=== PATIENT | male | born 1995 | race Caucasian/White ===

== ENCOUNTER → 2016-09-10 | Outpatient (CLI) | payer BC ==
[~2016-09-10] MED LIST: CNC/54 PO
[2016-09-10 16:08] LABS: BASO % 0.4 %; BASO ABS # 0.02 K/uL (0-0.2); COMPLETE YES; EOS % 0.4 %; IG% 0.4 %; LYMPH % 33.2 %; LYMPH ABS # 1.73 K/uL (1.2-3.4); MEAN CELL VOLUME 84.8 fL (80-100); MEAN CORPUSCULAR HEMOGLOBIN 29.5 pg (25-34); MEAN CORPUSCULAR HGB CONC 34.8 g/dl (32-36); MONO % 9.2 %; NEUT % 56.4 %; PLATELET COUNT 217 K/uL (130-400); RED BLOOD COUNT 4.95 M/uL (4.7-6.1); WHITE BLOOD COUNT 5.21 K/uL (4.8-10.8)
[2016-09-10 16:18] LABS: INR 1.1 (0.9-1.1); PARTIAL THROMBOPLASTIN RATIO 1.1; PROTHROMBIN TIME (PATIENT) 11.4 SECONDS (9.0-12.0)
[2016-09-10 16:20] LABS: POTASSIUM 3.8 mmol/L (3.5-5.1)
== END | disposition home or self-care (01) ==
LOC: C.LAB 14:51
DX: Z01.818 Encounter for other preprocedural examination (principal)

== ENCOUNTER → 2016-09-15 | Day surgery (SDC) | payer BC ==
[2016-09-09 11:56] VITALS: Ht 172.7 cm; Wt 93.2 kg
[~2016-09-15] VITALS: Ht 172.7 cm; Wt 93.2 kg
[~2016-09-15] MED LIST changes: +ATROPINE SULFATE 0.1 MG/ML 5ML SYR IV PRN; +BACITRACIN/POLYMYXIN B OINT 15 GM TUBE EXT ONE; +DEXAMETHASONE SOD INJ 4 MG/ML VIAL ONE; +EpHEDrine SULFATE INJ 50 MG/ML AMP IV PRN; +FENTANYL CITRATE INJ 50 MCG/1 ML 2 ML VIAL IV PRN; +FENTANYL CITRATE INJ 50 MCG/1 ML 2 ML VIAL ONE; +LACTATED RINGER'S 1000ML 1,000 ML IV SCH; +LIDOCAINE 2% JELLY 5 ML TUBE EXT ONE; +LIDOCAINE HCL 2% 2 ML VIAL (20MG/ML) ONE; +MIDAZOLAM HCL 1 MG/ML 2ML VIAL ONE; +ONDANSETRON INJ 2 MG/ML 2 ML VIAL IV PRN; +ONDANSETRON INJ 2 MG/ML 2 ML VIAL ONE; +OXYCODONE HCL SOLN 5 MG/5 ML UDC PO PRN; +OXYMETAZOLINE HCL 0.05% NA SPR 15 ML BTL ONE; +PROPOFOL IV EMULSION 10 MG/ML 20 ML VIAL IV ONE; +ROCURONIUM BROMIDE 10 MG/ML 5 ML VIAL ONE; +SUCCINYLCHOLINE CHLORIDE 20 MG/ML 10 ML VIAL IV ONE
--- NOTE | 2016-09-15 07:43 | History & Physical Bridge - SC ---
H&P Re-Evaluation Bridge Note: I have examined the patient, reviewed the History & Physical and in the interval since the performance of the History & Physical I have noted the following changes of clinical significance: No changes noted
--- NOTE | 2016-09-15 07:51 | History and Physical: Surg Cnt ---
History & Physical Date Sep 15, 2016. Chief Complaint CHRONIC TONSILLITIS AND TONSILLAR HYPERTROPHY History of Present Illness The patient is a 20 year old male with complaints of CHRONIC TONSILLITIS AND TONSILLAR HYPERTROPHY. Past Medical/Surgical History Medical Problems: (1) ADHD (attention deficit hyperactivity disorder) (2) Dyspnea (3) Strep throat Additional History Hepatic Disease: No Endocrine Disorder: No Kidney Disease: No Hypertension: No Heart Disease: No Bleeding Tendencies: No Infectious Diseases: No Other: ASTHMA Allergies Coded Allergies: Amoxicillin (Verified Allergy, Intermediate, rash, 09/15/16) Nickel (Verified Allergy, Unknown, RASH, 09/15/16) Penicillins (Unverified Adverse Reaction, Mild, RASH, 09/15/16) Home Medications Scheduled Methylphenidate Hcl (Concerta), 54 MG PO QAM Physical Examination Skin: warm/dry, no rash Eyes: normal inspection, EOMI, sclerae normal ENT: + pertinent finding (3-4+ TONSILS) Head: normocephalic, atraumatic Neck: supple, no adenopathy, trachea midline Respiratory/Chest: lungs clear, normal breath sounds, no respiratory distress Cardiovascular: regular rate, rhythm, no edema, no murmur Neurologic/Psych: no motor/sensory deficits, alert, normal reflexes, oriented x 3 Diagnosis CHRONIC TONSILLITIS AND TONSILLAR HYPERTROPHY Plan of Treatment TONSILLECTOMY, POSSIBLE ADENOIDECTOMY
--- NOTE | 2016-09-15 08:40 | [facility] Operative Report ---
Operative Report Operative Date Sep 15, 2016. Pre-Operative Diagnosis Chronic Tonsillitis, Tonsillar Hypertrophy Post-Operative Diagnosis Same Procedure(s) Performed Tonsillectomy And Adenoidectomy Surgeon Dr Overton Lathe Operator Contact Lens Surgeon(s) None Estimated Blood Loss 10ML Findings 1. 4+ TONSILS 2. 2+ ADENOIDS Specimens A: Right Tonsil B: Left Tonsil I attest to the content of the Intraoperative Record and any orders documented therein. Any exceptions are noted below.
--- NOTE | 2016-09-15 08:42 | Discharge Instructions ---
Discharge Instructions Admission Reason for Admission: Chronic Tonsillitis,Tonsillar Hypertrophy Discharge Discharge Diagnosis / Problem: SAME Discharge Goals Goal(s): Improve function Activity Recommendations Activity Limitations: as noted below 1. LIGHT ACTIVITY FOR 2WEEKS 2. MAY STAY OFF FROM WORK FOR 2WEEKS IF NEEDED 3. NO DRIVING WHILE ON OXYCODONE . Current Hospital Diet Patient's current hospital diet: Full Liquid Diet Discharge Diet Recommended Diet: Full Liquid Diet Diet Texture: Mechanical Soft (ground) Procedures Procedures Performed: Tonsillectomy And Adenoidectomy Pending Studies Studies pending at discharge: no Medical Emergencies . Who to Call and When: Medical Emergencies: If at any time you feel your situation is an emergency, please call 911 immediately. . Non-Emergent Contact Non-Emergency issues call your: Surgeon . . "Provider Documentation" section prepared by Gallito Overton. VTE Core Measure Inpt VTE Proph given/why not?: SCD's
--- NOTE | 2016-09-15 09:14 | OPERATIVE REPORT ---
DATE OF OPERATION: 09/15/2016 PREOPERATIVE DIAGNOSES: 1. Chronic tonsillitis. 2. Tonsillar hypertrophy. PROCEDURE: Tonsillectomy and adenoidectomy. SURGEON: Dr. Overton. ANESTHESIA: General endotracheal. ESTIMATED BLOOD LOSS: 10 mL FINDINGS: 1. 2+ adenoid tissue. 2. 4+ tonsils. SPECIMENS: Right and left tonsil sent separately for perm pathological assessment. COMPLICATIONS: None. INDICATIONS FOR THE PROCEDURE: The patient is a 20-year-old male with the above-mentioned history who presents for the above-mentioned procedure on an outpatient elective basis. DESCRIPTION OF PROCEDURE: After informed consent had been obtained from the patient, the patient was wheeled to the operating room and placed on the operating table in supine position. Monitors were placed after induction of general endotracheal anesthesia. The table was turned 90 degrees and the patient's head and neck were gently extended. Antibiotic ointment was applied to the lips and a mouth gag was carefully inserted, opened, and stabilized on a roll of towels. The pelvis was inspected and was found to be normal. Of note, the patient's tonsils were 4+ in size and visualization of the adenoid tissue was not able to be achieved prior to tonsillectomy. An Allis clamp was used to grasp the right tonsil and the superior pole and Bovie electrocautery was used to remove the tonsil and the capsular plane with care to preserve the underlying mucosa and musculature of the anterior and posterior tonsillar pillars. The left tonsil was then removed in a similar fashion. Intraoperative findings were 4+ tonsils bilaterally. These were sent separately for permanent pathological assessment. Catheter was inserted into the right nasal cavity and this was used to elevate the soft palate and uvula. A laryngeal mirror was used to inspect the nasopharynx and intraoperative findings were 2+ adenoid tissue. This was removed using suction Bovie electrocautery while achieving hemostasis simultaneously. The mouth gag was then released for 1 minute. This was reopened and hemostasis was confirmed. An orogastric tube was placed and the stomach was suctioned free of air and stomach contents. 2% lidocaine jelly was placed in the bilateral tonsillar fossae for added anesthetic affect. This marked the end of the case. The patient tolerated the procedure well and there were no apparent complications. The patient was extubated and transferred to recovery room in stable condition. I attest to the content of the Intraoperative Record and any orders documented therein. Any exceptio ns are noted below.
[2016-09-15 09:37] VITALS: TEMP 36.5
--- NOTE | 2016-09-15 09:56 | Anesthesia Progress Nt - [facility] ---
Anesthesia Post Op Note Date & Time Sep 15, 2016 at 09:55 Vital Signs Pain Intensity: 4 Vital Signs Past 12 Hours Date Time Temp Pulse Resp B/P Pulse Ox O2 Delivery O2 Flow Rate FiO2 09/15/16 09:37 36.5 63 126/82 98 Room Air 09/15/16 09:31 37.4 57 12 09/15/16 09:31 57 12 97 09/15/16 09:28 107/66 09/15/16 09:26 61 14 93 09/15/16 09:26 58 15 94 09/15/16 09:23 105/67 09/15/16 09:18 106/67 09/15/16 09:16 58 13 09/15/16 09:16 58 13 98 09/15/16 09:13 101/65 09/15/16 09:11 59 9 09/15/16 09:11 60 9 100 09/15/16 09:09 119/79 09/15/16 09:03 127/81 09/15/16 09:01 85 19 99 09/15/16 09:01 94 19 99 09/15/16 08:58 131/91 09/15/16 08:56 81 17 100 09/15/16 08:56 82 17 09/15/16 08:54 131/96 09/15/16 08:52 36.6 90 12 145/92 100 Humidified Oxygen 6 Mask 09/15/16 07:18 36.3 67 18 118/79 98 Room Air Notes Mental Status: alert / awake / arousable, participated in evaluation Pt Amnestic to Procedure: Yes Nausea / Vomiting: adequately controlled Pain: adequately controlled Airway Patency, RR, SpO2: stable & adequate BP & HR: stable & adequate Hydration State: stable & adequate Anesthetic Complications: no major complications apparent
[2016-09-15 10:10] VITALS: BP 121/82; PULSE 58; O2SAT 96
== END | disposition home or self-care (01) ==
LOC: X.SURG 06:59
DX: J35.01 Chronic tonsillitis (principal); F90.9 Attention-deficit hyperactivity disorder, unspecified type; R06.00 Dyspnea, unspecified

== ENCOUNTER 2017-04-13 21:38 | Emergency (ER) | payer BC, OTHER ==
[~2017-04-13] VITALS: Ht 172.7 cm; Wt 90.4 kg
[~2017-04-13 21:38] MED LIST changes: -ATROPINE SULFATE 0.1 MG/ML 5ML SYR IV PRN; -BACITRACIN/POLYMYXIN B OINT 15 GM TUBE EXT ONE; -DEXAMETHASONE SOD INJ 4 MG/ML VIAL ONE; -EpHEDrine SULFATE INJ 50 MG/ML AMP IV PRN; -FENTANYL CITRATE INJ 50 MCG/1 ML 2 ML VIAL IV PRN; -FENTANYL CITRATE INJ 50 MCG/1 ML 2 ML VIAL ONE; -LACTATED RINGER'S 1000ML 1,000 ML IV SCH; -LIDOCAINE 2% JELLY 5 ML TUBE EXT ONE; -LIDOCAINE HCL 2% 2 ML VIAL (20MG/ML) ONE; -MIDAZOLAM HCL 1 MG/ML 2ML VIAL ONE; -ONDANSETRON INJ 2 MG/ML 2 ML VIAL IV PRN; -ONDANSETRON INJ 2 MG/ML 2 ML VIAL ONE; -OXYCODONE HCL SOLN 5 MG/5 ML UDC PO PRN; -OXYMETAZOLINE HCL 0.05% NA SPR 15 ML BTL ONE; -PROPOFOL IV EMULSION 10 MG/ML 20 ML VIAL IV ONE; -ROCURONIUM BROMIDE 10 MG/ML 5 ML VIAL ONE; -SUCCINYLCHOLINE CHLORIDE 20 MG/ML 10 ML VIAL IV ONE
[2017-04-13 21:43] VITALS: Ht 172.7 cm; Wt 90.4 kg
--- NOTE | 2017-04-13 22:12 | EMERGENCY ROOM VISIT NOTE ---
History Report prepared by Jones: Noy Don Under the Supervision of: Dr. Arvind Cooper M.D. First contact with patient: 21:46 Chief Complaint: ANKLE PAIN Stated Complaint: SWOLLEN L ANKLE W/C History of Present Illness The patient is a 21 year old male who presents to the Emergency Room with complaints of persistent left ankle pain starting 2.5 hours ago. The patient was walking down stairs when he missed one step and fell to the ground, rolling his ankle in the process. He felt nausea and was close to passing out from the pain. The swelling began immediately after the injury. He took some ibuprofen, elevated his leg, and applied some ice. He currently rates his discomfort as a 7 /10 in severity. His pain worsens with weight bearing. He did not lose consciousness or injure his head. He denies any vomiting, knee pain, hip pain, arm pain, or other injury. He denies any history of heart, liver, spleen, or lung problems or diabetes. Source of History: patient Onset: 2.5 hours ago Position: ankle (left) Symptom Intensity: 7/10 Quality: other (pain, swelling) Timing: other (persistent) Modifying Factors (Worsening): other (weight bearing) Associated Symptoms: + nausea, No LOC, No vomiting Note: Pt denies head injury, knee pain, hip pain, arm pain, other injury. Review of Systems See HPI for pertinent positives & negatives. A total of 6 systems reviewed and were otherwise negative. Past Medical & Surgical Medical Problems: (1) ADHD (attention deficit hyperactivity disorder) (2) Dyspnea (3) Strep throat Family History No pertinent family history stated. Social History Smoking Status: Never Smoker Marital Status: single Occupation Status: student Current/Historical Medications Scheduled Methylphenidate Hcl (Concerta), 54 MG PO QAM Allergies Coded Allergies: Amoxicillin (Verified Allergy, Intermediate, rash, 09/15/16) Nickel (Verified Allergy, Unknown, RASH, 09/15/16) Penicillins (Unverified Adverse Reaction, Mild, RASH, 09/15/16) Physical Exam Vital Signs Date Time Temp Pulse Resp B/P (MAP) Pulse Ox O2 Delivery O2 Flow Rate FiO2 04/13/17 21:43 36.5 97 18 132/76 98 Room Air Physical Exam GENERAL: Sitting on the stretcher, in no distress. NEURO: Awake, alert, oriented x 3, no focal motor deficits. EXTREMITIES: Swelling with a forming contusion to the lateral aspect and the anterior aspect of the left foot, tender in this area, medial and lateral malleolus is nontender, no real discomfort over the base of the 5th metatarsal, Achilles tendon intact, no gross deformity, no neurovascular compromise. Medical Decision & Procedures ER Provider Diagnostic Interpretation: X-ray results as stated below per interpretation by me and the radiologist: LEFT ANKLE MIN 3 VIEWS ROUTINE CLINICAL HISTORY: Left ankle pain status post trauma COMPARISON: None. DISCUSSION: No fractures or dislocations are visualized. The ankle mortise appears intact. There is lateral soft tissue swelling. IMPRESSION: No fractures or dislocations identified. Electronically signed by: Chandra Bedoya M.D. 04/13/2017 10:34 PM Dictated Date/Time: 04/13/2017 10:33 PM LEFT FOOT MIN 3 VIEWS ROUTINE CLINICAL HISTORY: Left foot pain status post trauma COMPARISON: None. DISCUSSION: There is a tiny age-indeterminate bony density located between the navicular and cuneiform as visualized on the lateral view. No metatarsal or phalangeal fractures are visualized. There are no dislocations. IMPRESSION: Tiny age-indeterminate bony density located between the navicular and cuneiform as visualized on the lateral view. Electronically signed by: Chandra Bedoya M.D. 04/13/2017 10:38 PM Dictated Date/Time: 04/13/2017 10:34 PM ED Course 2147: The student evaluated the patient at this time. We discussed findings, differentials, and treatment plan. 2156: The patient was evaluated in room A11B. A complete history and physical exam was performed. 6: I reevaluated the patient. I discussed results and discharge instructions : he verbalized understanding and agreement. The patient is ready for discharge. Medical Decision Differential diagnoses considered include ankle sprain, foot sprain, ankle fracture, foot fracture. Patient presents with an injury to his left ankle and foot. He did have significant swelling and pain over the lateral aspect of the proximal foot. There was no neurovascular compromise. No injuries elsewhere. He did not have left knee pain. The patient had films of the left ankle and foot done. No obvious ankle fracture. There was a potential avulsion fracture noticed on the lateral view of his foot. Because of this irregularity, I did think orthopedic follow-up was required. He was placed in a posterior splint, he was given crutches, he was told not to bear weight. During his ER stay, he did receive ice to help the swelling. The patient is being discharged with orthopedic follow-up tomorrow. He will continue the Motrin/Advil for inflammation and pain. Elevation and ice were also suggested. Impression Primary Impression: Sprain of left foot Additional Impression: Left foot swelling Scribe Attestation The scribe's documentation has been prepared under my direction and personally reviewed by me in its entirety. I confirm that the note above accurately reflects all work, treatment, procedures, and medical decision making performed by me. Departure Information Dispostion Home / Self-Care Referrals Ezio Bourgeois MD Pandolph, Stephen J., M.D. Forms HOME CARE DOCUMENTATION FORM, IMPORTANT VISIT INFORMATION Patient Instructions My [facility] Additional Instructions keep the leg elevated do not bear any weight use crutches and wear the splint motrin 600 mg 3x per day for the next 4 days call and set up orthopedic appt--call in the am return if worsening Problem Qualifiers
--- NOTE | 2017-04-13 22:35 | DIAGNOSTIC IMAGING REPORT ---
LEFT ANKLE MIN 3 VIEWS ROUTINE CLINICAL HISTORY: Left ankle pain status post trauma COMPARISON: None. DISCUSSION: No fractures or dislocations are visualized. The ankle mortise appears intact. There is lateral soft tissue swelling. IMPRESSION: No fractures or dislocations identified. Electronically signed by: Chandra Bedoya M.D. 04/13/2017 10:34 PM Dictated Date/Time: 04/13/2017 10:33 PM
--- NOTE | 2017-04-13 22:39 | DIAGNOSTIC IMAGING REPORT ---
LEFT FOOT MIN 3 VIEWS ROUTINE CLINICAL HISTORY: Left foot pain status post trauma COMPARISON: None. DISCUSSION: There is a tiny age-indeterminate bony density located between the navicular and cuneiform as visualized on the lateral view. No metatarsal or phalangeal fractures are visualized. There are no dislocations. IMPRESSION: Tiny age-indeterminate bony density located between the navicular and cuneiform as visualized on the lateral view. Electronically signed by: Chandra Bedoya M.D. 04/13/2017 10:38 PM Dictated Date/Time: 04/13/2017 10:34 PM
[2017-04-13 23:09] VITALS: BP 130/74; PULSE 96; TEMP 36.5; O2SAT 97
== END 2017-04-13 23:11 | disposition home or self-care (01) ==
LOC: C.EDB 21:38 → C.EDA 23:11
DX: S93.402A Sprain of unspecified ligament of left ankle, initial encounter (principal); W10.8XXA Fall (on) (from) other stairs and steps, initial encounter; R22.42 Localized swelling, mass and lump, left lower limb; F90.9 Attention-deficit hyperactivity disorder, unspecified type; Z79.899 Other long term (current) drug therapy; Z88.0 Allergy status to penicillin; Z88.1 Allergy status to other antibiotic agents; Z91.09 Other allergy status, other than to drugs and biological substances